=== PATIENT | female | born 1960 | race Caucasian/White ===

== ENCOUNTER 2017-08-30 09:49 | Emergency (ER) | payer MEDICAID ==
[2017-08-30 09:50] VITALS: BMI 20.9
[2017-08-30 09:52] VITALS: BP 162/86; PULSE 86; RESP 17; TEMP 98.3; O2SAT 99
--- NOTE | 2017-08-30 10:21 | ED PDOC ---
HPI: Back Time Seen by Provider: 08/30/17 10:20 Chief Complaint (Nursing): Back Pain Chief Complaint (Provider): back pain History Per: Patient Additional Complaint(s): 56-year-old female with history of heroin abuse presents to ED with lower back pain ongoing for 2 months. Patient states that she fell 2 months ago but never was evaluated for this. She ambulates with cane at baseline. Patient rates pain as 10/10. She denies any bowel or bladder dysfunction. PMD: Clinic in [place], [place] Past Medical History Reviewed: Historical Data, Nursing Documentation, Vital Signs Vital Signs: Last Vital Signs Temp 98.3 F 08/30/17 09:51 Pulse 86 08/30/17 09:51 Resp 17 08/30/17 09:51 BP 162/86 H 08/30/17 09:51 Pulse Ox 99 08/30/17 09:51 - Medical History PMH: Asthma - Family History Family History: States: No Known Family Hx - Living Arrangements Living Arrangements: With Friends/Others - Social History Current smoker - smoking cessation education provided: Yes Alcohol: None Drugs: Opiates (snorts heroin) - Home Medications Home Medications: Ambulatory Orders Medication Instructions Recorded Cyclobenzaprine [Cyclobenzaprine 10 mg PO TID PRN #20 tab 08/30/17 HCl] Naproxen [Naprosyn] 500 mg PO BID #20 tab 08/30/17 - Allergies Allergies/Adverse Reactions: Allergies Allergy/AdvReac Type Severity Reaction Status Date / Time No Known Allergies Allergy Verified 08/30/17 10:00 Review of Systems ROS Statement: Except As Marked, All Systems Reviewed And Found Negative Constitutional: Negative for: Fever Cardiovascular: Negative for: Chest Pain Respiratory: Negative for: Cough Gastrointestinal: Negative for: Nausea, Vomiting Genitourinary Female: Negative for: Dysuria, Frequency, Incontinence, Hematuria Musculoskeletal: Positive for: Back Pain Physical Exam - Reviewed Nursing Documentation Reviewed: Yes Vital Signs Reviewed: Yes - Physical Exam Appears: Positive for: Well, Non-toxic, No Acute Distress Skin: Negative for: Rash Eye Exam: Positive for: Normal appearance Neck: Positive for: Normal Cardiovascular/Chest: Positive for: Regular Rate, Rhythm Respiratory: Positive for: Normal Breath Sounds Back: Positive for: Vertebral Tenderness (diffuse tenderness across lower lumbar region with muscle spasm, negative bilateral straight leg raise). Negative for: L CVA Tenderness, R CVA Tenderness Extremity: Positive for: Normal ROM Neurologic/Psych: Positive for: Alert, Oriented - ECG O2 Sat by Pulse Oximetry: 99 Pulse Ox Interpretation: Normal - Other Rad LS Spine X-ray X-Ray: Interpreted by Me, Viewed By Me X-Ray Interpretation: degenerative changes, no acute finding Medical Decision Making Medical Decision Makin56 year old with low back pain Plan: IM toradol LS Spine x-ray Patient aware of x-ray results. All questions answered. Rx naprosyn and flexeril given. Advised PMD or clinic follow up. Disposition - Clinical Impression Clinical Impression: Back strain - Patient ED Disposition Is Patient to be Admitted: No Counseled Patient/Family Regarding: Diagnosis, Need For Followup, Rx Given - Disposition Referrals: [facility] [Outside] Disposition: Routine/Home Disposition Time: 11:01 Condition: STABLE Additional Instructions: Take rx meds as directed as needed for pain. Follow up with clinic. Prescriptions: Cyclobenzaprine [Cyclobenzaprine HCl] 10 mg PO TID PRN #20 tab PRN Reason: Muscle Spasm Naproxen [Naprosyn] 500 mg PO BID #20 tab Instructions: Muscle Strain, Low Back Pain in Adults, Low Back Pain (DC) Forms: [employer] (Japanese)
--- NOTE | 2017-08-30 12:25 | RAD ---
PROCEDURE: Radiographs of the Lumbar Spine. HISTORY: trauma COMPARISON: No prior. FINDINGS: BONES: There is mild levoscoliosis in the lumbar spine. There is straightening of the lumbar spine with loss of normal lumbar lordosis. There is degenerative 6 mm anterior listhesis of L3 on L4. There is no acute fracture, spondylolysis or spondylolisthesis. Bone mineralization is normal. DISC SPACES: There is advanced degenerative disc disease at L3-4 with severe loss of disc height, endplate sclerosis, marginal spurring and facet arthropathy with a desiccated vacuum disc. There is also moderate degenerative disc disease at L4-5 and L5-S1. OTHER FINDINGS: There are no pathologic soft tissue calcifications. Both sacroiliac joints are normal. IMPRESSION: No acute fracture, spondylolysis or spondylolisthesis. Multilevel degenerative disc disease in the lower lumbar spine, worse at L3-4 with 6 mm degenerative anterior listhesis of L3 on L4.
== END 2017-08-30 12:15 | disposition home or self-care (01) ==
LOC: H.ER 09:49
DX: M54.9 Dorsalgia, unspecified (principal)
CPT/HCPCS: 72100; 96372; 99283; J1885